=== PATIENT | male | born 1940 | race Caucasian/White ===

== ENCOUNTER 2016-10-25 09:15 | Day surgery (SDC) | payer MEDICARE ==
[~2016-10-25 09:15] MED LIST: LISI-360 PO; LORTA5 PO; OMEP20TA PO; PRESCAP5 PO; ZOCO40TA PO
[2016-10-25] MEDS ORDERED: LACTATED RINGER'S 1000 ML IV SCH (10:00)
[2016-10-25] MEDS ORDERED: SODIUM CHLORID 0.9% 500 ML IV SCH (10:00)
[2016-10-25] MEDS ORDERED: VITA100C6 CHEW (10:06)
[2016-10-25] MEDS ORDERED: VITA250T3 PO (10:06)
[2016-10-25] MEDS ORDERED: XARE20TA PO (10:06)
[2016-10-25] MEDS ORDERED: PRED5TAB PO (10:06)
[2016-10-25] MEDS ORDERED: OMEP20TA PO (10:06)
[2016-10-25] MEDS ORDERED: LISI-515 PO (10:06)
[2016-10-25] MEDS ORDERED: VITA100T PO (10:06)
[2016-10-25] MEDS ORDERED: HYDR-3366 PO (10:06)
[2016-10-25] MEDS ORDERED: ATOR10TA15 PO (10:06)
[2016-10-25] MEDS ORDERED: METOPROLOL TARTRATE 25 MG TAB PO PRN (10:15)
[2016-10-25] MEDS ORDERED: INSULIN HUMAN REGULAR 1,000 UNITS/10 ML VIAL SQ PRN (10:15)
[2016-10-25] MEDS ORDERED: PROPOFOL 200 MG/20 ML AMP IV ONE ×2 (11:05→12:47)
[2016-10-25] MEDS ORDERED: AMIO200T PO ×2 (11:10→11:11)
--- NOTE | 2016-10-25 18:38 | EKG ---
Date Performed: 10/25/2016 Time Performed: 11:11:34 PTAGE: 75 years EKG: Sinus bradycardia with sinus arrhythmia. Leftward axis Possible septal infarct - age undete rmined Abnormal ECG PREVIOUS TRACING : 10/25/2016 09.37 Compared to the previous tracing, previously aflutter DOCTOR: Otilio Marcus Interpretating Date/Time 10/25/2016 18:36:56
--- NOTE | 2016-10-25 18:44 | EKG ---
Date Performed: 10/25/2016 Time Performed: 09:37:42 PTAGE: 75 years EKG: Atrial fibrillation vs flutter Left axis deviation Inferior infarct - age undetermined Abno rmal ECG PREVIOUS TRACING : 07/18/2009 12.24 Compared to the previous tracing, previously Sinus rhythm DOCTOR: Otilio Marcus Interpretating Date/Time 10/25/2016 18:43:08
== END 2016-10-25 12:03 | disposition home or self-care (01) ==
LOC: HSDC 09:15 → HDIC 09:16 → HSDC 12:03
PROVIDERS: ATTEND Internal Medicine Interventional Cardiology
DX: I48.91 Unspecified atrial fibrillation (principal); I10 Essential (primary) hypertension
CPT/HCPCS: 92960; 93005

== ENCOUNTER → 2017-03-12 | Outpatient (CLI) | payer MEDICARE ==
[~2017-03-12] MED LIST changes: +AMIO200T PO; +ATOR10TA15 PO; +DILT120C9 PO; +HYDR-3366 PO; +LEVO50TA4 PO; -LISI-360 PO; +LISI-515 PO; +LORA1TAB12 PO; -LORTA5 PO; +PAXI10TA2 PO; +PRED5TAB PO; -PRESCAP5 PO; +VITA100T PO; +VITA250T3 PO; +XARE20TA PO; -ZOCO40TA PO
[2017-03-12 11:27] LABS: HEMATOCRIT 37.8 % (39.0-51.0); MEAN CELL VOLUME 93.6 FL (80.0-100.0); MEAN CORPUSCULAR HEMOGLOBIN 30.6 PG (27.0-34.0); MEAN CORPUSCULAR HGB CONC 32.6 % (32.0-36.0); PLATELET COUNT 219 TH/MM3 (150-450); RED BLOOD COUNT 4.03 MIL/MM3 (4.50-5.90); RED CELL DISTRIBUTION WIDTH 14.3 % (11.6-17.2); WHITE BLOOD COUNT 7.6 TH/MM3 (4.0-11.0)
[2017-03-12 11:36] LABS: REVIEW FLAG FINAL
[2017-03-12 11:52] LABS: BICARBONATE 29.4 MEQ/L (21.0-32.0); POTASSIUM 4.2 MEQ/L (3.5-5.1)
== END ==
LOC: CLAB 11:08
PROVIDERS: ATTEND Internal Medicine Interventional Cardiology
DX: I48.0 Paroxysmal atrial fibrillation (principal); Z79.01 Long term (current) use of anticoagulants
CPT/HCPCS: 36415; 80048; 85027

== ENCOUNTER 2017-03-14 06:56 | Day surgery (SDC) | payer MEDICARE ==
[~2017-03-14 06:56] MED LIST changes: -DILT120C9 PO; -LEVO50TA4 PO; -LORA1TAB12 PO; -PAXI10TA2 PO
[2017-03-14] MEDS ORDERED: LORA1TAB12 PO (07:36)
[2017-03-14] MEDS ORDERED: PAXI10TA2 PO (07:36)
[2017-03-14] MEDS ORDERED: LEVO50TA4 PO (07:36)
[2017-03-14] MEDS ORDERED: DILT120C9 PO (07:36)
[2017-03-14] MEDS ORDERED: SODIUM CHLORID 0.9% 500 ML IV PRN (08:45)
[2017-03-14] MEDS ORDERED: INSULIN HUMAN REGULAR 1,000 UNITS/10 ML VIAL SQ PRN (08:45)
[2017-03-14] MEDS ORDERED: POVIDONE IODINE 5% (ANTISEPSIS KIT) 4 APPLICATIONS EACH NARE PRN (08:45)
[2017-03-14] MEDS ORDERED: METOPROLOL TARTRATE 25 MG TAB PO PRN (08:45)
[2017-03-14] MEDS ORDERED: CHLORHEXIDINE GLUCONATE 2 % 1 PACK (2 CLOTHS) TOPICAL PRN (08:45)
[2017-03-14] MEDS ORDERED: LACTATED RINGER'S 1000 ML IV PRN (08:45)
--- NOTE | 2017-03-14 11:20 | EKG ---
Date Performed: 03/14/2017 Time Performed: 09:40:54 PTAGE: 76 years EKG: Sinus bradycardia with 1st degree A-V block. Leftward axis Abnormal ECG PREVIOUS TRACING : 03/14/2017 07.27 Compared to previous tracing, Sinus rhythm has replaced atrial fibrillation. DOCTOR: Too Barger Interpretating Date/Time 03/14/2017 11:19:25
--- NOTE | 2017-03-14 11:53 | EKG ---
Date Performed: 03/14/2017 Time Performed: 07:27:14 PTAGE: 76 years EKG: Atrial fibrillation with slow ventricular response. Leftward axis ST junctional depression is nonspecific Abnormal ECG NO PREVIOUS TRACING DOCTOR: Too Barger Interpretating Date/Time 03/14/2017 11:51:15
== END 2017-03-14 10:54 | disposition home or self-care (01) ==
LOC: HCAT 06:56 → HDIC 06:57 → HCAT 10:54
PROVIDERS: ATTEND Internal Medicine Interventional Cardiology
DX: I48.1 Persistent atrial fibrillation (principal); R00.2 Palpitations; I25.10 Atherosclerotic heart disease of native coronary artery without angina pectoris; I11.0 Hypertensive heart disease with heart failure; I44.0 Atrioventricular block, first degree; R94.31 Abnormal electrocardiogram [ECG] [EKG]; Z79.01 Long term (current) use of anticoagulants
CPT/HCPCS: 92960; 93005; J7040

== ENCOUNTER → 2017-04-11 | Outpatient (CLI) | payer MEDICARE ==
[~2017-04-11] MED LIST changes: +DILT120C9 PO; +LEVO50TA4 PO; +LORA1TAB12 PO; +PAXI10TA2 PO; -PRED5TAB PO; +TAMS0.4C4 PO; -VITA100T PO
== END ==
LOC: CLAB 10:54
PROVIDERS: ATTEND Internal Medicine Interventional Cardiology
DX: I48.1 Persistent atrial fibrillation (principal); R53.81 Other malaise; Z79.899 Other long term (current) drug therapy
CPT/HCPCS: 36415; 84443; 84450; 84460

== ENCOUNTER → 2017-09-17 | Day surgery (SDC) | payer MEDICARE ==
[~2017-09-17] MED LIST changes: +LIDOCAINE HCL 1% PF 30 ML VIAL INFIL ONE; +MEPERIDINE HCL 25 MG/ML VIAL IV ONE; -OMEP20TA PO; +OMEP20TA93 PO; -PAXI10TA2 PO; +PAXI10TA8 PO; +PROPOFOL 200 MG/20 ML AMP IV ONE; +SODIUM CHLORIDE 0.9% 10 ML VIAL ONE; +TRIAMCINOLONE ACETONIDE 40 MG/ML VIAL NERV BLOCK ONE
--- NOTE | 2017-09-18 06:37 | M6 ---
cc: KEN DE OLIVEIRA M.D., W. ROSS DATE 09/17/2017 DATE OF 1940 PROCEDURE Fluoroscopically guided T1-T2 interlaminar epidural steroid injection. 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 He has had radiating pain into his left arm and the past which improved with fluoroscopically guided left cervical epidural steroid injections. The last time we did that procedure was on 04/16/2017. The patient comes today with recurring pain in his right shoulder extending down into his right arm. PROCEDURE NOTE History and physical was completed and signed. Consent was signed. Procedure site was marked. Medications were listed and reconciled. Pain score was recorded. Allergies were noted. Time out was taken. Fluoroscopy time was recorded where applicable. Sedation was administered or directed by Dr. Duke. The patient was given oxygen. The patient was monitored by a registered nurse. Total procedure time was greater than 15 minutes. IV was started, blood pressure cuff, pulse oximeter and EKG were applied. The patient was placed in the prone position on a Samy table sedated with small amounts of propofol and Demerol titrated to effect. Vital signs were monitored and remained stable throughout the procedure. The cervical area was prepped with alcohol and 10% Betadine solution and draped with sterile drapes. Fluoroscopy was used to visualize the T1-T2 interlaminar space. The skin was infiltrated with 1% Xylocaine using a 27 gauge needle. Then a 3-1/2-inch 18-gauge Arreaga needle was advanced using fluoroscopic guidance and the [id number] technique into the epidural space at T1-T2 slightly to the left of the midline. There was negative aspiration for blood or any other type of fluid and the patient was given 6 mL of normal saline and 60 mg of Kenalog. Following this, the patient was taken to the recovery room with stable vital signs neurologically intact. MD SOHAN Alegria/GAYE /9:14 AM /6:28 AM
== END | disposition home or self-care (01) ==
LOC: PHSDC 08:03
PROVIDERS: ATTEND Pain Medicine Interventional Pain Medicine
DX: M48.02 Spinal stenosis, cervical region (principal)
CPT/HCPCS: 62321; 99152; J2175; J3301; 62323

== ENCOUNTER → 2017-11-11 | Outpatient (CLI) | payer MEDICARE ==
[~2017-11-11] MED LIST changes: -DILT120C9 PO; -LIDOCAINE HCL 1% PF 30 ML VIAL INFIL ONE; -MEPERIDINE HCL 25 MG/ML VIAL IV ONE; -PROPOFOL 200 MG/20 ML AMP IV ONE; -SODIUM CHLORIDE 0.9% 10 ML VIAL ONE; -TRIAMCINOLONE ACETONIDE 40 MG/ML VIAL NERV BLOCK ONE
[2017-11-11 12:50] LABS: HEMATOCRIT 35.4 % (39.0-51.0); HEMOGLOBIN 11.7 GM/DL (13.0-17.0); MEAN CELL VOLUME 90.7 FL (80.0-100.0); MEAN CORPUSCULAR HGB CONC 33.1 % (32.0-36.0); MEAN PLATELET VOLUME 7.2 FL (7.0-11.0); PLATELET COUNT 280 TH/MM3 (150-450); RED CELL DISTRIBUTION WIDTH 14.6 % (11.6-17.2); WHITE BLOOD COUNT 8.3 TH/MM3 (4.0-11.0)
[2017-11-11 13:17] LABS: BICARBONATE 31.6 MEQ/L (21.0-32.0); CALCIUM 8.8 MG/DL (8.5-10.1)
[2017-11-11 13:26] LABS: CREATININE 1.15 MG/DL (0.60-1.30)
== END ==
LOC: CLAB 12:33
PROVIDERS: ATTEND Internal Medicine Interventional Cardiology
DX: R00.1 Bradycardia, unspecified (principal); I48.1 Persistent atrial fibrillation; I11.9 Hypertensive heart disease without heart failure; E78.00 Pure hypercholesterolemia, unspecified; R53.83 Other fatigue
CPT/HCPCS: 36415; 80048; 84443; 85027

== ENCOUNTER 2017-11-14 06:59 | Day surgery (SDC) | payer MEDICARE ==
[2017-11-14] MEDS ORDERED: FURO40TA PO (08:57)
--- NOTE | 2017-11-14 13:31 | EKG ---
Date Performed: 11/14/2017 Time Performed: 09:11:16 PTAGE: 76 years EKG: Sinus bradycardia with PAC(s) with 1st degree A-V block. Leftward axis Compared to previous tracing atrial fibrillation has resolved Abnormal ECG PREVIOUS TRACING : 11/14/2017 07.22 DOCTOR: Lesley Sheehan Interpretating Date/Time 11/14/2017 13:30:54
--- NOTE | 2017-11-14 13:31 | EKG ---
Date Performed: 11/14/2017 Time Performed: 07:22:46 PTAGE: 76 years EKG: Atrial fibrillation with a controlled v response Leftward axis Inferior T wave changes are nonspecific Compared to previous tracing the atrial fibrillation is new Abnormal ECG PREVIOUS TRACING : 03/14/2017 09.40 DOCTOR: eLsley Sheehan Interpretating Date/Time 11/14/2017 13:30:40
== END 2017-11-14 09:48 | disposition home or self-care (01) ==
LOC: HDIC 06:59 → HDOC 06:59
PROVIDERS: ATTEND Internal Medicine Interventional Cardiology
DX: I48.0 Paroxysmal atrial fibrillation (principal); I10 Essential (primary) hypertension; I25.10 Atherosclerotic heart disease of native coronary artery without angina pectoris; Z79.01 Long term (current) use of anticoagulants
CPT/HCPCS: 92960; 93005